=== PATIENT | female | born 1955 | race Caucasian/White ===

== ENCOUNTER → 2017-07-30 | Outpatient (CLI) | payer BC | END | disposition home or self-care (01) | LOC: HKI 10:51 | DX: M17.12 Unilateral primary osteoarthritis, left knee (principal) | CPT/HCPCS: 20610 ==

== ENCOUNTER → 2018-08-12 | Outpatient (CLI) | payer BC | END | disposition home or self-care (01) | LOC: HKI 15:04 | DX: M17.11 Unilateral primary osteoarthritis, right knee (principal); M11.262 Other chondrocalcinosis, left knee; Z96.641 Presence of right artificial hip joint; Z96.651 Presence of right artificial knee joint | CPT/HCPCS: 73564 ==